=== PATIENT | female | born 1985 | race Caucasian/White ===

== ENCOUNTER 2021-07-11 07:15 | Outpatient (CLI) | payer BC, SELFPAY ==
--- NOTE | ~2021-07-11 | XR_ITS ---
EXAMINATION: XR barium swallow DATE: 07/11/2021 07:45 INDICATION: Dysphagia, unspecified. TECHNIQUE: The patient drank thick barium, gas-producing crystals, and thin barium. Fluoroscopy of th e hypopharynx and esophagus was performed. Fluoroscopy exposure time was 0.3 minutes. The total numbe r of images was 439. The dose-area product was 1.58 Gy-cm^2. COMPARISON: None. FINDINGS: There is no mass or stricture of the esophagus. Esophageal motility is normal. There is no hiatal hernia. There was no gastroesophageal reflux with provocative maneuvers. IMPRESSION: 1. Normal esophagram. Reviewed, dictated and finalized at location A. CONDITIONING TECHNICIAN IMPRESSION: 1. Normal esophagram.
== END 2021-07-11 07:16 | disposition home or self-care (01) ==
LOC: ANHIMG 07:18
PROVIDERS: PCP Family Medicine; Visit Provider Family Medicine
DX: R13.10 Dysphagia, unspecified (principal)
CPT/HCPCS: 74220

== ENCOUNTER 2021-09-15 07:33 | Outpatient (CLI) | payer BC, SELFPAY ==
--- NOTE | 2021-09-18 13:55 | WPDHOMESLEEP ---
Sleep Study - Home Unattended Date of Study: 09/15/21 Ordering Provider: Jacqui Jones DO Interpreting Provider: Jacqui Jones DO Home Sleep Study Type: Apnea Link Air Height: 1.68 m Weight: 111.13 kg Body Mass Index: 39.5 Neck Circumference (inches): 17.5 [place]: 7 Reason for Sleep Study Sleep-onset and sleep-maintenance insomnia Sleep History The patient is a 35-year-old female with depression, GERD, anxiety and seasonal allergies that had a sleep study ordered by her primary care for evaluation of sleep disturbances. The patient occasionally awakens from sleep short of breath. She frequently awakens at night with heartburn, belching or cough. She frequently snores and is occasionally loud enough that others complain. She frequently has trouble sleeping when she has a cold. She rarely wakes up gasping for air throughout the night. She occasionally has breathing problems at night observed by herself or others. She frequently sweats excessively at night. He rarely notices heart palpitations or irregular heartbeats during the night. She occasionally falls asleep during the day but never while driving. She occasionally has trouble at school or work due to sleepiness. She denies sleep paralysis and cataplexy. She rarely experiences vivid dreamlike scenes upon awakening or falling asleep. She rarely has nightmares. She occasionally has thoughts racing through her mind. She rarely feels sad or depressed. She occasionally has anxiety. She occasionally notices parts of her body jerk. She occasionally has muscular tension. She rarely kicks during the night. She frequently has crawling and aching feelings in her legs and frequently has leg pain during the night. She rarely grinds her teeth during sleep and never awakens with morning jaw pain. She is occasionally bothered by pain during the day and frequently awakened by pain during the night. She occasionally wakes up feeling stiff in the morning. She occasionally wakes up with sore achy muscles. She occasionally wakes up with pain in the neck, spine and other joints. She goes to bed at 8:30 p.m. on weekdays and 10:00 p.m. on the weekends. It takes her 30-60 minutes to fall asleep at night. She wakes up 5-6 times throughout the night. When she awakens, she will watch TV, play games on her phone and read. She can fall back asleep within 20-45 minutes. He wakes up at 4:30 a.m. on weekdays and 8:30 a.m. on the weekends. She typically gets 3-5 hours of sleep per night. She will stay in bed for 15 minutes waking up in the morning. She currently lives with her mother, brother and 15-year-old child he does not consume any caffeinated beverages within 2 hours of bedtime. She does not engage physical exercise before bedtime. She will read watch television before falling asleep. She does not take naps in the afternoon or the evening. She will drink 1 can of caffeinated beverage per day. She denies tobacco, alcohol recreational drug use. [facility] Past Medical History Medical History Allergies Anxiety Major depressive disorder Family History Family History Mother Diabetes mellitus Sibling Asthma Depression Grandparent Diabetes mellitus Heart disease Hypertension Bone cancer Social History Social History Smoking status: Never smoker Alcohol intake: never Medications Home Medications Medication Instructions Recorded Confirmed Type cetirizine 10 mg disintegrating 10 mg PO DAILY 07/05/21 08/23/21 History tablet fluoxetine 40 mg capsule 40 mg PO DAILY 90 Days #90 cap 07/05/21 08/23/21 Rx albuterol sulfate 90 mcg/actuation 1 puff INHALATION Q4H PRN 08/23/21 08/23/21 History aerosol inhaler famotidine 20 mg tablet 20 mg PO BID PRN #60 tablet 08/23/21 08/23/21 Rx mometaso
[2021-09-18 14:04] VITALS: BMI 39.5
== END 2021-09-18 10:27 | disposition home or self-care (01) ==
LOC: ANHCSM 07:34
PROVIDERS: PCP Internal Medicine; Visit Provider Family Medicine
DX: G47.10 Hypersomnia, unspecified (principal); G47.9 Sleep disorder, unspecified
CPT/HCPCS: 95806

== ENCOUNTER 2021-09-21 14:33 | Outpatient (CLI) | payer BC, SELFPAY ==
--- NOTE | 2021-09-24 20:09 | P.PCNPFT_ITS ---
PFT Procedure Performed PFT Procedure Performed Spirometry with Pre/Post Bronchodilator Plethysmography (Lung Vol) Diffusing Cap (DLCO) Flow Vol Loop PFT Interpretation DOS: 09/21/2021 REQUESTING: Dr. Jacqui Jones REASON FOR TESTING: Dyspnea PULMONARY FUNCTION TESTS Results are reliable and reproducible. Spirometry: The pre bronchodilator FEV1 is 84% predicted, 2.82 L, normal. The pre bronchodilator FVC is 98%, 3.99 L, normal. The FEV1/FVC ratio is 71%, below predicted. This is consistent with airflow obstruction. After bronchodilator there is a 5% increase in the FEV1 and a 1% increase in the FVC. This is a non- statistically significant response. Lung volumes: The total lung capacity is 110%, 5.93 L, normal. The FRC is 98%, 2.91 L, normal. The ERV is 54%, 0.7 L, decreased. The residual volume is 124%, 1.94 L, normal. FEV1/FVC is 33 %, normal. Airway resistance is incre ased. Diffusion: DLCO is 103%, normal. Flow volume loop: Unremarkable. IMPRESSION: There is a mild obstructive ventilatory impairment with normal lung volumes and normal diffusion. Lack of response to bronchodilator should not preclude use if clinically indicated. Flor Parish MD
== END 2021-09-21 14:34 | disposition home or self-care (01) ==
LOC: ANHPFT 14:35
PROVIDERS: PCP Internal Medicine; Visit Provider Family Medicine
DX: R06.00 Dyspnea, unspecified (principal); R94.2 Abnormal results of pulmonary function studies
CPT/HCPCS: 94375; 94726; 94729

== ENCOUNTER 2021-10-06 07:12 | Outpatient (CLI) | payer BC, SELFPAY ==
--- NOTE | 2021-10-10 13:52 | WPDSLEEPSTUD ---
Sleep Study Date of Study: 10/06/21 Ordering Provider: Jacqui Jones DO Interpreting Physician: Jacqui Jones DO Sleep Study Type: Polysomnogram Height: 1.68 m Weight: 111.13 kg Body Mass Index: 39.5 Neck Circumference (inches): 17.5 [place]: 7 Reason for Sleep Study Loud snoring, nighttime awakening Sleep History The patient is a 35-year-old female with depression, GERD, anxiety and seasonal allergies that had a sleep study ordered by her primary care for evaluation of sleep disturbances. The patient occasionally awakens from sleep short of breath. She frequently awakens at night with heartburn, belching or cough. She frequently snores and is occasionally loud enough that others complain. She frequently has trouble sleeping when she has a cold. She rarely wakes up gasping for air throughout the night. She occasionally has breathing problems at night observed by herself or others. She frequently sweats excessively at night. He rarely notices heart palpitations or irregular heartbeats during the night. She occasionally falls asleep during the day but never while driving. She occasionally has trouble at school or work due to sleepiness. She denies sleep paralysis and cataplexy. She rarely experiences vivid dreamlike scenes upon awakening or falling asleep. She rarely has nightmares. She occasionally has thoughts racing through her mind. She rarely feels sad or depressed. She occasionally has anxiety. She occasionally notices parts of her body jerk. She occasionally has muscular tension. She rarely kicks during the night. She frequently has crawling and aching feelings in her legs and frequently has leg pain during the night. She rarely grinds her teeth during sleep and never awakens with morning jaw pain. She is occasionally bothered by pain during the day and frequently awakened by pain during the night. She occasionally wakes up feeling stiff in the morning. She occasionally wakes up with sore achy muscles. She occasionally wakes up with pain in the neck, spine and other joints. She goes to bed at 8:30 p.m. on weekdays and 10:00 p.m. on the weekends. It takes her 30-60 minutes to fall asleep at night. She wakes up 5-6 times throughout the night. When she awakens, she will watch TV, play games on her phone and read. She can fall back asleep within 20-45 minutes. He wakes up at 4:30 a.m. on weekdays and 8:30 a.m. on the weekends. She typically gets 3-5 hours of sleep per night. She will stay in bed for 15 minutes waking up in the morning. She currently lives with her mother, brother and 15-year-old child he does not consume any caffeinated beverages within 2 hours of bedtime. She does not engage physical exercise before bedtime. She will read watch television before falling asleep. She does not take naps in the afternoon or the evening. She will drink 1 can of caffeinated beverage per day. She denies tobacco, alcohol recreational drug use. [facility] Past Medical History Medical History Allergies Anxiety Major depressive disorder Family History Family History Mother Diabetes mellitus Sibling Asthma Depression Grandparent Diabetes mellitus Heart disease Hypertension Bone cancer Social History Social History Smoking status: Never smoker Alcohol intake: never Medications Home Medications Medication Instructions Recorded Confirmed Type cetirizine 10 mg disintegrating 10 mg PO DAILY 07/05/21 08/23/21 History tablet albuterol sulfate 90 mcg/actuation 1 puff INHALATION Q4H PRN 08/23/21 08/23/21 History aerosol inhaler famotidine 20 mg tablet 20 mg PO BID PRN #60 tablet 08/23/21 08/23/21 Rx tiotropium 2.5 mcg-olodaterol 2.5 2 puff INHALATION DAILY 30 Days #4 09/25/21 Rx mcg/actuation mist for inhalation g
[2021-10-10 17:13] VITALS: BMI 39.5
== END 2021-10-07 07:07 | disposition home or self-care (01) ==
LOC: ANHCSM 07:45
PROVIDERS: PCP Internal Medicine; Visit Provider Family Medicine
DX: G47.9 Sleep disorder, unspecified (principal)
CPT/HCPCS: 95810

== ENCOUNTER 2021-10-13 14:49 | Outpatient (CLI) | payer BC, SELFPAY | END 2021-10-13 14:50 | disposition home or self-care (01) | LOC: ANHLAB 14:51 | PROVIDERS: PCP Internal Medicine; Visit Provider Family Medicine | DX: G25.81 Restless legs syndrome (principal) | CPT/HCPCS: 36415; 82728 ==

== ENCOUNTER 2021-11-01 09:04 | Outpatient (CLI) | payer BC, SELFPAY ==
--- NOTE | ~2021-11-01 | XR_ITS ---
XR chest 2V DATE: 11/01/2021 09:16 INDICATION: Cough, dyspnea TECHNIQUE: PA and lateral views COMPARISON: None FINDINGS: Normal heart size. No hilar or mediastinal enlargement. No pulmonary infiltrate or consolid ation, pleural effusion or pulmonary vascular congestion or pneumothorax. Included skeletal structures are normal. Pubic sutures overlie the lower left cervical area. IMPRESSION: No active cardiopulmonary disease Reviewed, dictated and finalized at location A.
== END 2021-11-01 09:05 | disposition home or self-care (01) ==
LOC: ANHIMG 09:05
PROVIDERS: PCP Internal Medicine; Visit Provider Family Medicine
DX: R05.9 Cough, unspecified (principal)
CPT/HCPCS: 71046

== ENCOUNTER 2021-11-09 08:15 | Outpatient (CLI) | payer BC, SELFPAY ==
[2021-11-09 08:57] LABS: Basophils Percent Auto 0.4 % (0.2-1.2); Eosinophils Absolute Auto 0.2 K/mm3 (0-0.3); Eosinophils Percent Auto 2.9 % (0-4.4); Hematocrit 41.2 % (37.0-47.0); Hemoglobin 12.7 g/dL (12.0-15.0); Immature Granulocyte Absolute 0.02 K/mm3 (0.00-0.031); Immature Granulocyte Percent A 0.2 % (0-0.5); Lymphocytes Absolute Auto 1.58 K/mm3 (0.9-3.2); Lymphocytes Percent Auto 19.1 % (18.3-44.2); Mean Corpuscular HGB Conc 30.8 g/dl (32-36); Mean Corpuscular Volume 97.4 fl (80-100); Mean Platelet Volume 8.9 fl (7.4-10.4); Monocytes Absolute Auto 0.5 K/mm3 (0.1-0.6); Monocytes Percent Auto 6.3 % (2.6-8.5); Neutrophils Absolute Auto 5.9 K/mm3 (1.3-6.7); Neutrophils Percent Auto 71.1 % (45.5-73.1); Platelet Count Result 279 k/mm3 (150-375); Red Blood Count 4.23 M/mm3 (4.2-5.4); Red Cell Distribution Width 13.1 % (11.5-14.5); White Blood Count 8.3 K/mm3 (4.5-10.0)
[2021-11-09 09:27] LABS: LDL Cholesterol Direct 162 mg/dL
[2021-11-09 09:52] LABS: Vitamin D 25 Hydroxy 33.5 ng/mL
[2021-11-09 10:00] LABS: Hemoglobin A1C 5.5 % (<5.7)
[2021-11-09 14:00] LABS: Alanine Aminotransferase 20 U/L (6-35); Albumin Level 3.9 g/dL (3.5-5.1); Alkaline Phosphatase 59 U/L (38-126); Anion Gap 8 mmol/L (8-16); Aspartate Amino Transferase 38 U/L (14-36); Bilirubin,Total 0.8 mg/dL (0.2-1.3); Blood Urea Nitrogen 12 mg/dL (7-17); Calcium 8.1 mg/dL (8.4-10.2); Carbon Dioxide 20 mmol/L (22-30); Chloride 108 mmol/L (98-107); Cholesterol 246 mg/dL (0-200); Estimated Glomerular Filt Rate > 60; Glucose 111 mg/dL (65-110); HDL Direct 25 mg/dL; Potassium 4.8 mmol/L (3.4-5.0); Sodium 136 mmol/L (137-145); Triglycerides 154 mg/dL (<150)
== END 2021-11-09 08:16 | disposition home or self-care (01) ==
LOC: ANHLAB 08:17
PROVIDERS: PCP Internal Medicine; Visit Provider Family Medicine
DX: E55.9 Vitamin D deficiency, unspecified (principal); R06.00 Dyspnea, unspecified; R73.9 Hyperglycemia, unspecified; R53.83 Other fatigue; Z13.220 Encounter for screening for lipoid disorders
CPT/HCPCS: 36415; 80053; 80061; 82306; 83036; 84439; 84443; 85025

== ENCOUNTER 2022-10-03 10:44 | Outpatient (CLI) | payer BC, SELFPAY ==
[2022-10-03 19:47] LABS: Basophils Percent Auto 0.3 % (0.2-1.2); Eosinophils Absolute Auto 0.1 K/mm3 (0-0.3); Eosinophils Percent Auto 1.4 % (0-4.4); Hematocrit 40.1 % (37.0-47.0); Hemoglobin 13.3 g/dL (12.0-15.0); Immature Granulocyte Absolute 0.04 K/mm3 (0.00-0.031); Immature Granulocyte Percent A 0.4 % (0-0.5); Lymphocytes Absolute Auto 1.86 K/mm3 (0.9-3.2); Lymphocytes Percent Auto 18.3 % (18.3-44.2); Mean Corpuscular HGB Conc 33.2 g/dl (32-36); Mean Corpuscular Hemoglobin 29.2 pg (26-34); Mean Corpuscular Volume 88.1 fl (80-100); Mean Platelet Volume 10.9 fl (7.4-10.4); Monocytes Absolute Auto 0.5 K/mm3 (0.1-0.6); Monocytes Percent Auto 4.4 % (2.6-8.5); Neutrophils Absolute Auto 7.7 K/mm3 (1.3-6.7); Neutrophils Percent Auto 75.2 % (45.5-73.1); Platelet Count Result 321 k/mm3 (150-375); Red Blood Count 4.55 M/mm3 (4.2-5.4); Red Cell Distribution Width 12.6 % (11.5-14.5); White Blood Count 10.2 K/mm3 (4.5-10.0)
[2022-10-03 21:25] LABS: Free T4 Free Thyroxine 0.67 ng/mL (0.78-2.19); Vitamin D 25 Hydroxy 44.9 ng/mL
[2022-10-03 21:30] LABS: Alanine Aminotransferase 26 U/L (6-35); Albumin Level 4.1 g/dL (3.5-5.1); Alkaline Phosphatase 76 U/L (38-126); Anion Gap 6 mmol/L (8-16); Aspartate Amino Transferase 36 U/L (14-36); Bilirubin,Total 0.5 mg/dL (0.2-1.3); Blood Urea Nitrogen 12 mg/dL (7-17); Calcium 8.9 mg/dL (8.4-10.2); Carbon Dioxide 29 mmol/L (22-30); Chloride 102 mmol/L (98-107); Cholesterol 213 mg/dL (0-200); Estimated Glomerular Filt Rate > 60; Glucose 114 mg/dL (65-110); HDL Direct 34 mg/dL; Potassium 3.8 mmol/L (3.4-5.0); Sodium 137 mmol/L (137-145); Triglycerides 166 mg/dL (<150)
[2022-10-03 21:41] LABS: LDL Cholesterol Direct 141 mg/dL
[2022-10-03 22:07] LABS: Hemoglobin A1C 5.4 % (<5.7)
== END 2022-10-03 10:45 | disposition home or self-care (01) ==
LOC: ANHGOSHLAB 10:46
PROVIDERS: PCP Family Medicine; Visit Provider Family Medicine
DX: R53.83 Other fatigue (principal); E55.9 Vitamin D deficiency, unspecified; E78.2 Mixed hyperlipidemia; R73.9 Hyperglycemia, unspecified
CPT/HCPCS: 36415; 80053; 80061; 82306; 83036; 84439; 84443; 85025

== ENCOUNTER 2023-02-14 09:34 | Outpatient (CLI) | payer BC, SELFPAY ==
[2023-02-14 13:57] LABS: Basophils Percent Auto 0.3 % (0.2-1.2); Eosinophils Absolute Auto 0.2 K/mm3 (0-0.3); Eosinophils Percent Auto 1.6 % (0-4.4); Hematocrit 40.8 % (37.0-47.0); Hemoglobin 13.4 g/dL (12.0-15.0); Immature Granulocyte Absolute 0.03 K/mm3 (0.00-0.031); Immature Granulocyte Percent A 0.2 % (0-0.5); Lymphocytes Absolute Auto 2.27 K/mm3 (0.9-3.2); Lymphocytes Percent Auto 18.5 % (18.3-44.2); Mean Corpuscular HGB Conc 32.8 g/dl (32-36); Mean Corpuscular Hemoglobin 29.4 pg (26-34); Mean Corpuscular Volume 89.5 fl (80-100); Monocytes Absolute Auto 0.6 K/mm3 (0.1-0.6); Monocytes Percent Auto 4.8 % (2.6-8.5); Neutrophils Absolute Auto 9.1 K/mm3 (1.3-6.7); Neutrophils Percent Auto 74.6 % (45.5-73.1); Platelet Count Result 342 k/mm3 (150-375); Red Blood Count 4.56 M/mm3 (4.2-5.4); Red Cell Distribution Width 12.4 % (11.5-14.5); White Blood Count 12.3 K/mm3 (4.5-10.0)
== END 2023-02-14 09:35 | disposition home or self-care (01) ==
LOC: ANHGOSHLAB 09:36
PROVIDERS: PCP Family Medicine; Visit Provider Family Medicine
DX: R53.83 Other fatigue (principal)
CPT/HCPCS: 36415; 85025

== ENCOUNTER 2023-10-30 11:49 | Outpatient (CLI) | payer BC, SELFPAY ==
[2023-10-30 12:41] LABS: Basophils Percent Auto 0.3 % (0.2-1.2); Eosinophils Absolute Auto 0.1 K/mm3 (0-0.3); Eosinophils Percent Auto 0.8 % (0-4.4); Hematocrit 41.1 % (37.0-47.0); Hemoglobin 13.7 g/dL (12.0-15.0); Immature Granulocyte Absolute 0.06 K/mm3 (0.00-0.031); Immature Granulocyte Percent A 0.4 % (0-0.5); Lymphocytes Absolute Auto 2.59 K/mm3 (0.9-3.2); Lymphocytes Percent Auto 17.7 % (18.3-44.2); Mean Corpuscular HGB Conc 33.3 g/dl (32-36); Mean Corpuscular Hemoglobin 29.7 pg (26-34); Mean Corpuscular Volume 89.2 fl (80-100); Mean Platelet Volume 9.5 fl (7.4-10.4); Monocytes Absolute Auto 0.7 K/mm3 (0.1-0.6); Monocytes Percent Auto 4.8 % (2.6-8.5); Neutrophils Absolute Auto 11.2 K/mm3 (1.3-6.7); Platelet Count Result 339 k/mm3 (150-375); Red Blood Count 4.61 M/mm3 (4.2-5.4); White Blood Count 14.7 K/mm3 (4.5-10.0)
[2023-10-30 14:37] LABS: Hemoglobin A1C 5.8 % (<5.7)
[2023-10-30 19:57] LABS: Alanine Aminotransferase 17 U/L (6-35); Albumin Level 4.2 g/dL (3.5-5.1); Alkaline Phosphatase 75 U/L (38-126); Anion Gap 6 mmol/L (4-12); Aspartate Amino Transferase 29 U/L (14-36); Bilirubin,Total 0.5 mg/dL (0.2-1.3); Blood Urea Nitrogen 10 mg/dL (7-17); Calcium 9.3 mg/dL (8.4-10.2); Carbon Dioxide 25 mmol/L (22-30); Chloride 107 mmol/L (98-107); Cholesterol 236 mg/dL (0-200); Estimated Glomerular Filt Rate > 60; Glucose 81 mg/dL (65-110); HDL Direct 35 mg/dL; Potassium 4.3 mmol/L (3.4-5.0); Sodium 138 mmol/L (137-145); Triglycerides 175 mg/dL (<150)
[2023-10-30 20:08] LABS: LDL Cholesterol Direct 158 mg/dL
[2023-10-30 20:28] LABS: Free T4 Free Thyroxine 0.75 ng/mL (0.78-2.19); Vitamin D 25 Hydroxy 31.1 ng/mL
== END 2023-10-30 11:50 | disposition home or self-care (01) ==
LOC: ANHGOSHLAB 11:51
PROVIDERS: PCP Family Medicine; Visit Provider Family Medicine
DX: R53.83 Other fatigue (principal); R73.9 Hyperglycemia, unspecified; E78.5 Hyperlipidemia, unspecified; D64.9 Anemia, unspecified; E55.9 Vitamin D deficiency, unspecified; Z12.4 Encounter for screening for malignant neoplasm of cervix
CPT/HCPCS: 36415; 80053; 80061; 82306; 83036; 84439; 84443; 85025

== ENCOUNTER 2024-03-17 08:28 | Outpatient (CLI) | payer BC, SELFPAY ==
--- NOTE | ~2024-03-17 | XR_ITS ---
CHEST RADIOGRAPH, PA AND LATERAL CLINICAL HISTORY: URI cough sob CP for 2 weeks, hx of copd . COMPARISON: 11/01/2021 TECHNIQUE: PA and lateral views of the chest. FINDINGS The cardiomediastinal silhouette is unremarkable. The lungs are clear. Visualized osseous structures and soft tissues are unremarkable. IMPRESSION: No focal infiltrate or effusion. Reviewed, dictated and finalized at location A.
== END 2024-03-17 08:29 | disposition home or self-care (01) ==
LOC: GOSHIMG 08:30
PROVIDERS: PCP Family Medicine; Visit Provider Family Medicine
DX: R06.02 Shortness of breath (principal); R07.9 Chest pain, unspecified; R05.9 Cough, unspecified
CPT/HCPCS: 71046

== ENCOUNTER 2024-12-04 08:09 | Outpatient (CLI) | payer OTHER, SELFPAY ==
--- OUTSIDE RECORDS SUMMARY | 2024-12-04 08:12 | XMS_ITS | Encounter Summary ---
Author Organization [facility] Address [address] [place] [address] Phone Care Team Providers Care Wet Room Supervisor Name Role Phone Haja Baeza MD Primary Care Provider [phone] Reason for Visit * Reason Comments Medication Refill Encounter Details Date Type Department Care Team (Late st Contact Info) Description 06/27/2021 Refill [facility] - Family Medicine [facility] [address] [place] [address] Haja Baeza MD [address] [place] [address] Medication Refill Social History Tobacco Use Types Packs/Day Years Used Date Smoking Tobacco: Never Smokeless Tobacco: Never Alcohol Use Standard Drinks/Week Comments Yes 0 (1 standard drink = 0.6 oz pur e alcohol) occasional PHQ-2 Answer Date Recorded Total Score - Questions 1-9 13 12/25 Comments No Sex and Gender Information Value Date Recorded Sex Assigned at Not on file Legal Sex Female 9:07 PM CDT Gender Identity Not on file Sexual Orientation Not on file documented as of this encounter Miscellaneous Notes * Telephone Encounter - Aura Wharton RN - 06/27/2021 3:49 PM CST Medication failed the protocol, provider to review and approve the medication order if appropriate. Requested Prescriptions Pending Prescriptions Disp Refills FLUoxetine (PROzac) 20 MG Capsule [Pharmacy Med Name: FLUOXETINE HCL 20 MG CAPSULE] 90 Capsule 0 Sig: TAKE 1 CAPSULE BY MOUTH EVERY DAY (PATIENT NEEDS FOLLOW UP) SSRI (6 Month Refill Only) Protocol Failed - 06/27/2021 8:37 AM Failed - Patient has established therapy with SSRI for at least 6 months Passed - No test in the past 12 months or most recent test was negative Passed - No active on record Passed - Visit with relevant provider in past 6 months or upcoming 90 days Recent Visits Date Type Provider Dept 01/06/21 Office Visit Haja Baeza MD [facility] Showing recent visits within past 182 days and meeting all other requirements Future Appointments No visits were found meeting these conditions. Showing future appointments within next 90 days and meeting all other requirements Passed - Has an encounter in the past 6 months with a depression, anxiety, adjustment disorder, OCD, or PTSD visit diagnosis ER PLANT OPERATOR documented in this encounter Plan of Treatment Not on file documented as of this encounter Visit Diagnoses Not on filedocumented in this encounter Additional Health Concerns Assessment Noted Time PHQ-9 Depression Total Score: 021 8:00 AM CDT documented as of this encounter Care Teams Wet Room Supervisor Relationship Specialty Start Date End Date Haja Baeza MD PCP - General Family Medicine 12/23/20 07/09/24 documented as of this encounter
--- OUTSIDE RECORDS SUMMARY | 2024-12-04 08:12 | XMS_ITS | Clinical Summary ---
Author Organization [facility] Address [address] [place] [address] Phone Care Team Providers Care Key Cutter Name Role Phone Unavailable Primary Care Provider Unavailabl e Allergies No known active allergies Medications fluoxetine HCl (FLUOXETINE ORAL) Take by mouth. Activ e azithromycin (ZITHROMAX) 1 gram Packet Take 1 Gram by mouth one time only. Active inhalational spacing device (Aerochamber MV) Spacer Use with inhaler 1 Each 4 2:26 PM CDT 10/30/19 24 Active gabapentin (NEURONTIN) 100 mg capsule Take 1 Capsule (100 mg) by mouth 2 times daily. 60 Capsule 4 11:53 AM CDT 11/29/19 24 Active amoxicillin-cl avulanate (AUGMENTIN) 875-125 mg tablet Take 1 Tablet by mouth 2 times daily. 20 Tablet 4 10:09 AM CDT 03/17/20 24 Active albuterol sulfate HFA 90 mcg/actuation aerosol inhaler INHALE 1 PUFF INHALED EVERY 4 HOURS NEEDED FOR SHORTNESS OF BREATH OR WHEEZING 18 Gram 4 10:02 AM DIE TURNER 04/07/20 24 Active methocarbamoL (ROBAXIN) 750 mg tablet Take 1 Tablet (750 mg) by mouth nightly as needed for upper back pain. 30 Tablet 5 3:04 PM DIE TURNER 07/01/19 25 Active tiotropium-olo dateroL (Stiolto Respimat) 2.5-2.5 mcg/actuation metered inhaler Take 2 Puffs by inhalation daily. 4 Gram 5 5 10:41 AM CDT 07/22/19 25 Active triamcinolone acetonide (KENALOG) 0.1 % Cream APPLY TO AFFECTED AREA(S) 2 TIMES A DAY 454 Gram 5 9:38 AM DIE TURNER 07/22/19 25 Active triamcinolone acetonide (KENALOG) 0.1 % Cream APPLY TO AFFECTED AREA(S) 2 TIMES A DAY 454 Gram 5 10:03 AM CDT 10/27/19 25 Active hydrOXYzine HCL (ATARAX) 25 mg tablet Take 1 Tablet (25 mg) by mouth 4 times daily as needed for itching 120 Tablet 12/04/19 25 Active etonogestrel-E thinyl Estradiol 0.12-0.015 mg/24 hr Ring Insert 1 vaginally ring vaginally. Leave in for 3 weeks and remove for 1 week and repeat cycle 3 Each 3 12/04/19 25 Active etonogestrel-E thinyl Estradiol (EluRyng) 0.12-0.015 mg/24 hr Ring Insert 1 vaginally ring vaginally. Leave in for 3 weeks and remove for 1 week and repeat cycle 3 Each 3 5 11:24 AM CDT 08/18/19 25 025 Discontinued Active Problems Problem Noted Date Diagnosed Date Myopia of both eyes 09/06/2023 Astigmatism of both eyes 09/06/2023 Encounters Date Type Department Care Team Description 11/17/2024 External Device Data ST[facility] ABSTRACTION Provider, Abstract 11/10/2024 External Device Data [facility] ABSTRACTION Provider, Abstract 10/15/2024 External Device Data [facility] ABSTRACTION Provider, Abstract 10/14/2024 External Device Data [facility] ABSTRACTION Provider, Abstract 10/13/2024 External Device Data [facility] ABSTRACTION Provider, Abstract 09/08/2024 External Device Data [facility] ABSTRACTION Provider, Abstract from Last 3 Months Immunizations Immunization Administration Dates Next Due Influenza Seasonal Unspecifi ed Formulation IM 03/20/2024,03/19/2023,03/03/2022,2020 Social History Tobacco Use Types Packs/Day Years Used Date Smoking Tobacco: Never Assessed Feeling Safe Answer Date Recorded Are you in a relationship wi th someone who hurts you emotionally and/or physically? No 07/13/2024 Comments Unknown Sex and Gender Information Value Date Recorded Sex Assigned at Not on file Legal Sex Female 6:30 PM DIE TURNER Gender Identity Not on file Sexual Orientation Not on file Plan of Treatment Health Maintenance Due Date Last Done Comments DTAP/TDAP/TD VACCINES (6 - Tdap) 1997 12/26/1991, 08/13/1989, 04/01/1987, Additional history exists HPV/Cotest (21-29) 09/29/2007 CERVICAL CANCER SCREENING 2016 HPV/Cotest (30-65) 2016 PAP SMEAR 2016 COVID-19 Vaccine ( season) 2024 10/08/2020, 06/20/2020 INFLUENZA VACCINE (#1) 2024 , 03/19/2023, 03/03/2022, Additional history exists HEPATITIS B VACCINES Completed 10/02/1996, 06/19/1996, 05/01/1996 HPV VACCINES Aged Out No longer eligi ble based on patient's age to complete this topic Insurance RX [employer]OSS PLANS (INTERNAL) [facility] [employer] RX [employer] RX Member Subscriber Plan / Payer (Ef fective 2024-Present) Name:Crystal Parikh Relation to Subscriber:Not on file Name:Crystal Parikh Subscriber ID:Not on file Date of :1985 Payer ID:Not on file Type:Not on file Address: [employer] [employer] [employer] [place] [address] * Guarantor: [id number] Account Type Relation to Patient Date of Phone Billing Address Workers Comp Employer
--- OUTSIDE RECORDS SUMMARY | 2024-12-04 08:12 | XMS_ITS | Clinical Summary ---
Author Organization [facility] Address [address] [place] [address] Phone Care Team Providers Care Cigarette Making Machine Catcher Name Role Phone Unavailable Primary Care Provider Unavailabl e Allergies No known active allergies Medications Cetirizine-Pseu doephedrine (ZYRTEC-D PO) Take 1 Tablet by mouth daily. Active Cyanocobalamin (B-12 PO) Take 1,000 mcg by mouth daily. Active Biotin 1000 MCG Tablet Take 5,000 mcg by mouth 2 times daily. Active Ascorbic Acid (VITAMIN C PO) Take 125 mg by mouth daily. Active APPLE CIDER VINEGAR PO Take 1-2 Tablets by mouth 3 times daily. Active other by Other route 2 times daily. [place] Active mometasone (ELOCON) 0.1 % Cream Apply to rash daily prn 45 g 1 Active FLUoxetine (PROzac) 20 MG Capsule TAKE 1 CAPSULE BY MOUTH EVERY DAY (PATIENT NEEDS FOLLOW UP) 90 Capsule 2 Active Active Problems No known active problems Immunizations Immunization Administration Dates Next Due Covid-19, Mrna, Lnp-s, Pf, 3 0 Mcg/0.3 Ml Dose (SFOX) 10/08/2020,06/20/2020 DTP Vaccine 12/26/1991, 0,04/01/1987,1986,1986 Hepatitis B Vaccine, Pediatric/adolescent 10/02/1996,06/19/1996,05/01/1996 Hib Vaccine,unspecified Formulation 09/21/1988 Inactivated Polio Vaccine 12/26/1991,,04/01/1987,1986,1986 MMR Vaccine 12/26/1991,09/21/1988 TD VACCINE 01/12/2002 Family History Medical History Relation Name Comments No Known Problems Mother Cancer Other IN FAMILY IN GENERAL Diabetes Other IN FAMILY IN GENERAL Heart Disease Other IN FAMILY IN GENERAL Relation Name Status Comments Father Other Mother Alive Other IN FAMILY IN GENERAL Other Social History Tobacco Use Types Packs/Day Years Used Date Smoking Tobacco: Never Smokeless Tobacco: Never Tobacco Cessation:Counseling Given: Yes Alcohol Use Standard Drinks/Week Comments Yes 0 (1 standard drink = 0.6 oz pur e alcohol) occasional PHQ-2 Answer Date Recorded Total Score - Questions 1-9 13 12/25 Comments No Sex and Gender Information Value Date Recorded Sex Assigned at Not on file Legal Sex Female 9:07 PM CDT Gender Identity Not on file Sexual Orientation Not on file Last Filed Vital Signs Vital Sign Reading Time Taken Comments Blood Pressure 112/72 01/06/2021 8:19 AM CDT Pulse 83 01/06/2021 8:19 AM CDT Temperature 36.3 C (97.3 F) 01/06/2021 8:19 AM CDT Respiratory Rate 16 01/06/2021 8:19 AM CDT Oxygen Saturation 98% 01/06/2021 8:19 AM CDT Inhaled Oxygen Concentration - - Weight 112.5 kg (248 lb 1.6 oz) 01/06/2021 8:19 AM CDT Height 167.6 cm (5' 6) 01/06/2021 8:19 AM CDT Body Mass Index 40.04 01/06/2021 8:19 AM CDT Plan of Treatment Health Maintenance Due Date Last Done Comments Hepatitis C Virus (HCV) Screening 1985 Human Papillomavirus (HPV) Immunization (1 - 3-dose series) 2001 DTaP/Tdap/Td Immunization (6 - Tdap) 01/13/2002 01/12/2002, 12/26/1991, 08/13/1989, Additional history exists Pap Smear 09/29/2007 Cervical Cancer Screening (CCS) 2016 HPV/Cotest 2016 SARS-COV-2 Immunization ( season) 2024 10/08/2020, 06/20/2020 Influenza Immunization (#1) 2025 Respiratory Syncytial Virus (RSV) Immunization (Adult) (1 - 1-dose 75+ series) 2061 Hepatitis B Immunization Completed 997, 06/19/1996, 05/01/1996 Meningococcal Immunization (ACWY) Aged Out No longer eligible based on patient's age to complete this topic Pneumococcal Immunization Combined Aged Out No longer eligible based on patient's age to complete this topic Rotavirus Immunization Aged Out No lo nger eligible based on patient's age to complete this topic Insurance
--- OUTSIDE RECORDS SUMMARY | 2024-12-04 08:12 | XMS_ITS | Clinical Summary ---
Author Organization [facility] Address [address] [place] [address] Care Team Providers Care Dowel Pin Worker Name Role Phone Unavailable Primary Care Provider Unavailabl e Source Comments [facility] [place],non-owned Affiliates and Associated Physician Practices is amultiple site organization consisting of ambulatory clinics and hospital sitesin [place], [place], [place] and [place]. This disclosure is being madepursuant to the Care Everywhere program and may not contain all information available regarding this patient. Last updated 18.[facility] [place] Allergies No known active allergies Medications * Be aware that medications may not be up to date on this document. Alwaysverify current medications with the patient. fluticasone propionate (FLONASE) 50 MCG/ACT nasal spray [place] 2 Sprays into each nostril once daily 1 Bottle 03/25/2016 Active Social History Tobacco Use Types Packs/Day Years Used Date Smoking Tobacco: Never Comments Unknown Sex and Gender Information Value Date Recorded Sex Assigned at Not on file Legal Sex Female 10:12 PM CDT Gender Identity Not on file Sexual Orientation Not on file Last Filed Vital Signs Vital Sign Reading Time Taken Comments Blood Pressure 110/76 03/25/2016 1:59 PM CDT Pulse 87 03/25/2016 1:59 PM CDT Temperature 37 C (98.6 F) 03/25/2016 1:59 PM CDT Respiratory Rate - - Oxygen Saturation - - Inhaled Oxygen Concentration - - Weight 104.3 kg (230 lb) 03/25/2016 1:59 PM CDT Height 167.6 cm (5' 6) 03/25/2016 1:59 PM CDT Body Mass Index 37.12 03/25/2016 1:59 PM CDT Plan of Treatment Health Maintenance Due Date Last Done Comments HIV SCREENING 2001 HEPATITIS C SCREENING 09/23/2004 DTAP/TDAP/TD VACCINES (1 - Tdap) 2005 HEPATITIS B VACCINE (1 of 3 - 19+ 3-dose series) 2005 COVID-19 VACCINE (1 - 2023-2 5 season) 2024 DEPRESSION SCREENING 05/27/2024 INFLUENZA VACCINE (Season Ended) 2025 ZOSTER VACCINE (1 of 2) 2036 HIB VACCINE Aged Out No longer eligi ble based on patient's age to complete this topic HPV VACCINE Aged Out No longer eligi ble based on patient's age to complete this topic MENINGOCOCCAL (Group B) VACC INE SHARED DECISION-MAKING Aged Out No longer eligibl e based on patient's age to complete this topic MENINGOCOCCAL GROUPS A/C/Y/W VACCINE Aged Out No longer eligible b ased on patient's age to complete this topic PNEUMOCOCCAL VACCINE Aged Out No long er eligible based on patient's age to complete this topic Insurance [employer]
--- OUTSIDE RECORDS SUMMARY | 2024-12-04 08:12 | XMS_ITS | Encounter Summary ---
Author Organization [facility] Address [address] [facility] [place] [address] Phone Care Team Providers Care Waste Water Worker Name Role Phone Haja Baeza MD Primary Care Provider [phone] Reason for Visit * Reason Comments Medication Refill Encounter Details Date Type Department Care Team (Late st Contact Info) Description 03/29/2021 Refill [facility] - [facility] [address] [place] [address] Haja Baeza MD [address] [place] [address] Medication Refill Social History Tobacco Use Types [...] encounter Miscellaneous Notes * Telephone Encounter - Celi Gould RN - 03/29/2021 1:58 PM CDT Medication failed the protocol, provider to review and approve the medication order if appropriate. Requested Prescriptions Pending Prescriptions Disp Refills FLUoxetine (PROzac) 20 MG Capsule [Pharmacy Med Name: FLUOXETINE HCL 20 MG CAPSULE] 90 Capsule 0 Sig: TAKE 1 CAPSULE BY MOUTH EVERY DAY SSRI (6 Month Refill Only) Protocol Failed - 03/29/2021 1:30 PM Failed - Patient has established therapy with SSRI for at least 6 months Passed - No test in the past 12 months or most recent test was negative Passed - No active on record Passed - Visit with relevant provider in past 6 months or upcoming 90 days Recent Visits Date Type Provider Dept 01/06/21 Office Visit Haja Baeza MD [facility] Showing recent visits within past 182 days and meeting all other requirements Future Appointments No visits were found meeting these conditions. Showing future appointments within next 90 days and meeting all other requirements Passed - Has an encounter in the past 6 months with a depression, anxiety, adjustment disorder, OCD, or PTSD visit diagnosis documented in this encounter Plan of Treatment Not on file documented as of this encounter Visit Diagnoses Not on filedocumented in this encounter Additional Health Concerns Assessment Noted Time PHQ-9 Depression Total Score: 021 8:00 AM CDT documented as of this encounter Care Teams Waste Water Worker Relationship Specialty Start Date End Date Haja Baeza MD PCP - General Family Medicine 12/23/20 07/09/24 documented as of this encounter
--- OUTSIDE RECORDS SUMMARY | 2024-12-04 08:12 | XMS_ITS | Data Portability ---
Author Organization [facility] Address [address] [facility] [place] [address] Assessment Encounter Date Assessment Date Assessment LastModified by Organization Details LastModified Time 06/28/2020 06/28/[address] Stokes, who concurs with assessment and plan. [email or web address] Not available 06/30/2020 10:32:14 Plan of Treatment Reminders Order Date Submit Date Provider Last Modified By Organization Details Last Modified Time Details Appointments None recorded. Lab CBC w/ auto diff 2020 021 GEORGINAMIKE Gudino [facility], [address] [place], [address], 1 11:30:13 BMP, serum or plasma 2020 021 [place] [facility], [address] [facility], [address], [place], [address], 1 09:12:06 Referral gynecolog ist referral 2020 021 yuriy [place] [facility], [address] [facility] , [address], [address], [place], [address], 1 17:06:43 Procedures None recorded. Surgeries None recorded. Imaging US, axilla 2020 021 GEORGINA Gonzales (Radiology), [address] [place], [address], 1 08:34:08 Medication Orders cyclobenz aprine 10 mg tablet 2019 020 INTERFACE Not available 0 09:05:04 diclofena c potassium 50 mg tablet 2019 020 INTERFACE Not available 0 09:05:04 azithromy juana 250 mg tablet 2018 019 [email or web address] Not available 0 08:56:13 Tessalon Perles 100 mg capsule 2018 019 [email or web address] Not available 0 08:56:17 citalopra m 20 mg tablet 2018 019 INTERFACE Not available 9 11:15:17 azithromy juana 250 mg tablet 2018 019 [email or web address] Not available 0 08:56:13 Tessalon Perles 100 mg capsule 2018 019 [email or web address] Not available 0 08:56:17 Patient TargetsNo targets recorded. Patient Instructions Encounter Date Encounter Id Patient Instructions Last Modified By Organization Details Last Modified Time 06/10/2018 [id number] upper respirator y infection (cold): care instructions [email or web address] Not available 06/10/2018 08:52:01 Drink plenty of fluids, Get plenty of rest. Take Tylenol as dir. OTC ltardino Not available 06/10/2018 08:52:53 05/07/2019 [id number] upper respirator y infection (cold): care instructions ltardino Not available 05/07/2019 11:12:04 Drink plenty of fluids, Get plenty of rest. Take Tylenol as dir. OTC ltardino Not available 05/07/2019 11:35:32 07/02/2019 [id number] back care and preventing injuries: care instructions ltardino Not available 07/02/2019 09:05:02 Reason for Referral Project Asst Referral for Ma ss of axilla Referring Physician: Roseann Brown, Family Medicine, Encounter Date: 06/28/2020 Results Created Date Observation Date Name Description Value Unit Range Abnormal Flag Note LastModifiedBy Organization Detail LastModifiedTime 07/11/19 21 07/11/2020 US, cynthia a No observ ation record ed. [email or web address] Ely Gonzales (Radiology) [address] [place], [address], 07/13/2020 14:14:34 Result Notes None recorded. Problems Name Problem SNOMED Code Status Onset Date Resolution Date Notes Provider Name and Address Organization Details Recorded Time Mixed anxiety and depressive disorder 162461833 Active 2019 Lorenzo Baptiste null, [place] [facility] 0 09:04:01 Low back pain 869042462 Active 2019 [place] [facility] 0 09:04:54 Otitis media 48481868 Active Roseann Med[place] RN [place] [facility] 6 11:07:26 Pain in right arm 735570207 Active Roseann [place] [facility] 6 11:07:26 Acute pharyngitis 764765559 Active Roseann [place] [facility] 6 11:07:26 Upper respiratory infection 15958481 Active Roseann [place] [facility] 6 11:07:26 Contact dermatitis caused by urushiol from [facility] noemy 266501307 Active Roseann [place] [facility] 6 11:14:21 Serous otitis media 98118756 Active Roseann Medrano RN [place], [place] [facility] 6 11:07:26 Problem Notes None recorded. Medical Equipment None Reported. Allergies No known drug allergies Medications Name Sig Start Date Stop Date Status Note LastModified by Organization Details LastModified Time cyclobenzap rine 10 mg tablet TAKE 1 TABLET BY MOUTH EVERYDAY AT BEDTIME active Not Available Not Available No t Available amoxicillin 500 mg capsule active Not Available Not Available Not Available Augmentin 875 mg-125 mg tablet Take 1 tablet every 12 hours by oral route. 05/07 completed Not Available Not Available Not Available azithromyci n 250 mg tablet TAKE 2 TABLETS (500 MG) BY ORAL ROUTE ONCE DAILY FOR 1 DAY THEN 1 TABLET (250 MG) BY ORAL ROUTE ONCE DAILY FOR 4 DAYS 07/02 completed Not Available Not Available Not Available ibuprofen 800 mg tablet Take 1 tablet 3 times a day by oral route with meals for 10 days. 07/04 completed Not Available Not Available Not Available meloxicam 15 mg tablet 07/04 completed Not Available Not Available Not Available Medrol (Galindo) 4 mg tablets in a dose pack Take 1 dose pk every day by oral route as directed. 06/10 completed Not Available Not Available Not Available tramadol 50 mg tablet Take 1 tablet every 12 hours by oral route as needed. active Not Available Not Available No t Available amoxicillin 500 mg tablet Take 1 tablet every 8 hours by oral route. 2014 active Not Available Not Available Not Avai lable Depo-Medrol 80 mg/mL suspension for injection Take 1 mL every day by injection route for 1 day. 07/04 completed Not Available Not Available Not Available Tessalon Perles 100 mg capsule Take 1 capsule 3 times a day by oral route. 07/02 completed Not Available Not Available Not Available amoxicillin 875 mg tablet active Not Available Not Available Not Available citalopram 20 mg tablet Take 1 tablet every day by oral route. 2018 active Not Available Not Available Not Avai lable nystatin 100,000 unit/gram topical cream APPLY TO THE AFFECTED AREA(S) BY TOPICAL ROUTE 2 TIMES PER DAY 05/07 completed Not Available Not Available Not Available diclofenac potassium 50 mg tablet TAKE 1 TABLET BY MOUTH TWICE A DAY active Not Available Not Available No t Available Flonase Allergy Relief 50 mcg/actuati on nasal spray,suspe nsion [place] 1 spray every day by intranasa l route. 05/07 completed Not Available Not Available Not Available Training [employer] COVID-19 Vaccine (PF) 30 mcg/0.3 mL IM susp (purple) ADMINISTE R 0.3ML IN THE MUSCLE DIRECTED active Not Available Not Available No t Available Vitals Date Recorded Body height Body mass index (BMI) Body weight Heart rate Respiratory rate Body temperature Systolic And Diastolic Provider Name and Address Organization Details Last Updated DateTime 9 167.64 cm 37.9 kg/m2 863751. 21 g 76 /min 16 /min 97.3 [degF] 138/98 mm[Hg] Amy Cid MA [facility] 9 08:42:07 Date Recorded Body height Provider Name an d Address Organization Details Last Updated DateTime 06/27/2020 167.64 cm Isela Kasper MA [facility] 1 09:23:55 Date Recorded Body height Body mass index (BMI) Body weight Heart rate Respiratory rate Body temperature Systolic And Diastolic Provider Name and Address Organization Details Last Updated DateTime 1 167.64 cm 39.7 kg/m2 108670. 72 g 80 /min 16 /min 97.1 [degF] 138/88 mm[Hg] Isela Kasper MA [facility] 1 08:44:21 Date Recorded Body height Body mass index (BMI) Body weight Heart rate Respiratory rate Body temperature Systolic And Diastolic Provider Name and Address Organization Details Last Updated DateTime 0 167.64 cm 37.9 kg/m2 660899. 21 g 76 /min 18 /min 97.4 [degF] 134/88 mm[Hg] Amy Cid MA [facility] 0 08:54:59 Date Recorded Body height Body mass index (BMI) Body weight Heart rate Respiratory rate Body temperature Systolic And Diastolic Provider Name and Address Organization Details Last Updated DateTime 9 167.64 cm 37.3 kg/m2 013282. 84 g 80 /min 18 /min 98.6 [degF] 148/90 mm[Hg] Amy Cid MA [facility] 9 10:58:21 Social History Question Answer Notes LastModified by Organizat ion Details LastModified Time Tobacco Smoking Status Never Smoker Amy Cid MA null, [facility] 06/02/2014 09:01:57 Marital Status [email or web address] Informatio n not available 02/10/2015 What Was The Date Of Your Most Recent Tobacco Screening? 06/10/2018 Information n ot available 12/18/2018 Sex: Unknown Functional Status Question Answer Note LastModified by Organizat ion Details LastModified Time What is your level of alcohol consumption? Occasional [email or web address] Information not available 01/04/2015 Mental Status None recorded. Family History Relationship Description Onset Age of this Age Resolved Age Notes LastModified by Organization Details LastModified Time Mother Hypertensive disorder [email or web address] Not available 2015 09:10:25 Medical History Condition Response Coronary Artery Disease N Other N High Blood Pressure N Atrial Fibrillation N Kidney or Bladder Problems N Thyroid Problems N GI Problems N Depression N COPD N Blood Clots N Skin Problems N Anemia N Heart Attack (MT) N Anxiety Disorder N Diabetes N Muscle, Joint, or Bone Problems N Seizures/Epilepsy N Acid Reflux (GERD) N Cancer N Stroke N Asthma N Allergies N High Cholesterol N Hepatitis N Liver Disease N Headaches N Heart Failure N Osteoporosis N Gynecological HistoryNo gynecological history recorded. Obstetrics History GPAL:G 0 P 0 0 0 0 Past Encounters Encounter ID Performer Location Encounter Start Date Encounter Closed Date Diagnosis/Indication Diagnosis SNOMED-CT Code Diagnosis ICD10 Code Diagnosis Note [id number] MD Len Flores [facility] [address] [place] [address] 1 06/02/2014 08:49:34 06/02/2014 11:01:19 Serous otitis media 63164011 [id number] LOLY [facility] [address] [place] [address] 1 07/27/2014 08:25:44 07/27/2014 09:16:44 Otitis media 90895090 [id number] LOLY [facility] [address] [place] [address] 1 01/04/2015 16:35:19 01/04/2015 17:27:05 Pain in right arm 413658481 [id number] LOLY [facility] [address] [place] [address] 1 02/10/2015 13:30:52 02/11/2015 10:07:16 Acute pharyngitis 945333807 [id number] MD Len Flores [facility] [address] [place] [address] 1 04/14/2015 16:46:01 04/14/2015 17:22:58 Pain in right arm 598571856 M79.601 [id number] LOLY [facility] [address] [place] [address] 1 07/25/2015 15:54:02 07/25/2015 16:25:16 Upper respiratory infection 87817569 J06.9 [id number] Lorenzo Baptiste [facility] [address] [place] [address]883 1 10/27/2015 13:57:06 10/27/2015 16:56:01 Upper respiratory infection 27667701 J06.9 [id number] Lorenzo Baptiste [facility] [address] [place] [address]457 1 12/15/2015 08:56:17 12/15/2015 13:47:46 Contact dermatitis caused by urushiol from [facility] noemy 168774900 L25.5 [id number] Lorenzo Baptiste [place] [address] [place] [address] 1 12/28/2015 10:52:09 12/28/2015 15:47:23 Contact dermatitis caused by urushiol from [facility] noemy 261130598 L25.5 [id number] Rick Stokes MD [place] [address] [place] [address] 1 04/10/2016 11:09:21 04/11/2016 13:50:09 Pain of temporomandibular joint 81489527 M26.957 [id number] Lorenzo Baptiste [place] [address] [place] [address] 1 07/04/2017 08:30:01 07/04/2017 11:59:04 Adult health examination 608119555 Z00.00 Upper resp iratory infection 32821929 J06.9 [id number] Lorenzo Baptiste Count includes the [facility] 14 IM [address] [place] [address] 10/23/2017 10:17:30 10/23/2017 14:47:00 Contact dermatitis caused by urushiol from [facility] noemy 026671702 L25.5 [id number] Lorenzo Baptiste Count includes the [facility] 14 IM [address] [place] [address] 12/10/2017 09:41:58 12/10/2017 11:17:45 Contact dermatitis caused by urushiol from [facility] noemy 718484548 L25.5 Tinea corporis 21078481 B35.4 [id number] MD Ely Flores [address] [place] [address] 06/10/2018 08:28:05 06/10/2018 16:46:59 Upper respiratory infection 53472312 J06.9 [id number] MD Ely Flores [address] [place] [address] 05/07/2019 10:46:06 05/08/2019 10:32:31 Upper respiratory infection 00375629 J06.9 Mixed anxi ety and depressive disorder 997667173 F41.8 [id number] MD Ely Flores [address] [place] [address] 07/02/2019 08:38:52 07/03/2019 11:33:20 Mixed anxiety and depressive disorder 240153380 F41.8 Low back pain 894711111 M54.5 [id number] MD Ely Moody [address] [place] [address] 06/27/2020 08:41:33 08/02/2020 08:36:43 [id number] MD Ely Flores [address] [place] [address] 06/28/2020 08:24:43 06/29/2020 13:41:45 Mass of axilla 756709171 R22.2 -Advised swelling could be contribute d from covid vaccine, however due to length of time will order CBC and US of area.-Advi sed 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 Health Concerns Section Related Observation LastModified by Organization Detai ls LastModified Time None Recorded Concern Status LastModified by Organization Details LastModified Time None Recorded Advance Directives Directive None Recorded Payers Insurance Date Sequence Insurance Name Policy Number Policy Espinoza Covered Member ID Espinoza Member ID Guarantor Name 07/19/2015 1 [facility] - OPEN ACCESS (POS) Crystal Parikh [id number] Crystal Parikh 12/06/2020 1 [employer] - MULTIPLAN (PPO) MEDICAL PLAN Gregg Parikh [id number] Crystal Weinbergner 12/19/2015 1 [employer] - DOS PRIOR TO 20 - [facility] BENEFITS PLAN [id number] Crystal Weinbergner [id number] Crystal Weinbergner Notes Date Note Type Note Provider Name and Address Organization Details Recorded Time 06/10/2018 text/html Upper Respirator y SymptomsReported bypatient.Location:hea d Quality:productive cough;colored phlegm;congested Modifying Factors:OTC medication Associated Symptoms:yellow-green, thick sputum;fatigue Lorenzo flynn [place] [facility] 06/10/2018 08:53:01 05/07/2019 text/html Upper Respirator y SymptomsReported bypatient.Location:hea d Quality:productive cough;colored phlegm;congested Modifying Factors:OTC medication States she has started noticing anxiety and depression lately related to her work. 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 Pt reports L arm pain that started one week ago after moving heavy furniture. Patient reports pain is worse with palpation. Pt reports it is axilla. No redness to area. No drainage. ODIN [place] Emma [facility] 08/02/2020 08:36:42 06/28/2020 text/html Musculoskeletal PainReported bypatient.Location:h[place] n is not radiating Severity:same Duration:present <1 month Timing:constant Context:overuse Associated Symptoms:no fever; no weak limbs; no tingling Pt here for large knot under L arm. Reports she noticed it 1 weeks ago after moving furniture at her job. Pt does not remember specific injury. She also reports she had her covid vaccine about 2 weeks ago in the same arm. She denies any fever, night sweats, rash, N/V/D, other node swelling, breast masses or lumps. 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 Rick Stokes MD Attn: Accounting,[address] [place], [address], [facility] 06/30/2020 10:32:45 OBGyn Episode No OBEpisode recorded.
[2024-12-04 11:56] LABS: Hematocrit 41.7 % (37.0-47.0); Hemoglobin 13.5 g/dL (12.0-15.0); Immature Granulocyte Percent A 0.3 % (0-0.5); Lymphocytes Absolute Auto 1.92 K/mm3 (0.9-3.2); Mean Corpuscular HGB Conc 32.4 g/dl (32-36); Mean Corpuscular Hemoglobin 29.3 pg (26-34); Mean Corpuscular Volume 90.5 fl (80-100); Nucleated Red Blood Cells Absolute Auto 0.000 K/mm3 (0.0-0.012); Nucleated Red Blood Cells Perc 0.0 % (0.0-0.2); Platelet Count Result 363 k/mm3 (150-375); Red Blood Count 4.61 M/mm3 (4.2-5.4); White Blood Count 13.4 K/mm3 (4.5-10.0)
[2024-12-04 12:04] LABS: Alanine Aminotransferase 22 U/L (6-35); Albumin Level 3.9 g/dL (3.5-5.1); Alkaline Phosphatase 69 U/L (38-126); Anion Gap 10 mmol/L (4-12); Aspartate Amino Transferase 29 U/L (14-36); Bilirubin,Total 0.3 mg/dL (0.2-1.3); Blood Urea Nitrogen 10 mg/dL (7-17); Calcium 9.1 mg/dL (8.4-10.2); Carbon Dioxide 25 mmol/L (22-30); Chloride 105 mmol/L (98-107); Cholesterol 222 mg/dL (0-200); Estimated Glomerular Filt Rate > 60; Glucose 103 mg/dL (65-110); HDL Direct 37 mg/dL; Potassium 4.2 mmol/L (3.4-5.0); Sodium 140 mmol/L (137-145); Total Protein 7.9 g/dL (6.3-8.2); Triglycerides 100 mg/dL (<150)
[2024-12-04 12:40] LABS: Thyroid Stimulating Hormone 9.890 uIU/mL (0.465-4.680)
[2024-12-04 12:54] LABS: Free T4 Free Thyroxine 0.65 ng/dL (0.78-2.19)
[2024-12-04 13:03] LABS: Hemoglobin A1C 5.6 % (<5.7)
== END 2024-12-04 08:10 | disposition home or self-care (01) ==
LOC: ANHGOSHLAB 08:10
PROVIDERS: PCP Family Medicine; Visit Provider Family Medicine
DX: E78.2 Mixed hyperlipidemia (principal); D64.9 Anemia, unspecified; Z00.00 Encounter for general adult medical examination without abnormal findings; R53.83 Other fatigue; R73.9 Hyperglycemia, unspecified; E55.9 Vitamin D deficiency, unspecified
CPT/HCPCS: 36415; 80053; 80061; 82306; 83036; 84439; 84443; 85025

== ENCOUNTER 2024-12-14 13:11 | Outpatient (CLI) | payer OTHER, SELFPAY ==
--- OUTSIDE RECORDS SUMMARY | 2024-12-14 13:16 | XMS_ITS | Encounter Summary ---
Author Organization [facility] Address [address] [facility] [place] [address] Phone Care Team Providers Care Education And Training Coordinator Name Role Phone Haja Baeza MD Primary Care Provider [phone] Reason for Visit * Reason Comments Medication Refill Encounter Details Date Type Department Care Team (Late st Contact Info) Description 06/27/2021 Refill [facility] - Family Medicine [facility] [address] [place] [address] Haja Baeza MD [address] [place] [address] Medication Refill Social History Tobacco Use Types [...] Dept 01/06/21 Office Visit Haja Baeza MD [facility] Showing recent visits within past 182 days and meeting all other requirements Future Appointments No visits were found meeting these conditions. Showing future appointments within next 90 days and meeting all other requirements Passed - Has an encounter in the past 6 months with a depression, anxiety, adjustment disorder, OCD, or PTSD visit diagnosis ET ANALYST documented in this encounter Plan of Treatment Not on file documented as of this encounter Visit Diagnoses Not on filedocumented in this encounter Additional Health Concerns Assessment Noted Time PHQ-9 Depression Total Score: 021 8:00 AM CDT documented as of this encounter Care Teams Education And Training Coordinator Relationship Specialty Start Date End Date Haja Baeza MD PCP - General Family Medicine 12/23/20 07/09/24 documented as of this encounter
--- OUTSIDE RECORDS SUMMARY | 2024-12-14 13:16 | XMS_ITS | Encounter Summary ---
Author Organization [facility] Address [address] [facility] [place] [address] Phone Care Team Providers Care Policy Change Clerk Name Role Phone Haja Baeza MD Primary Care Provider [phone] Reason for Visit * Reason Comments Medication Refill Encounter Details Date Type Department Care Team (Late st Contact Info) Description 03/29/2021 Refill [facility] - Family Medicine [facility] [address] [place] [address] Haja Baeza MD [address] [place] [address] Medication Refill Social History Tobacco Use Types [...] Dept 01/06/21 Office Visit Haja Baeza MD [facility] Showing recent visits within past 182 days [...] documented as of this encounter Care Teams Policy Change Clerk Relationship Specialty Start Date End Date Haja Baeza MD PCP - General Family Medicine 12/23/20 07/09/24 documented as of this encounter
--- OUTSIDE RECORDS SUMMARY | 2024-12-14 13:16 | XMS_ITS | Clinical Summary ---
Author Organization [facility] Address [address] [place] [address] Phone Care Team Providers Care Pebble Mill Operator Name Role Phone Unavailable Primary Care Provider [...] OR WHEEZING 18 Gram 4 10:02 AM MORTGAGE LOAN SPECIALIST 04/07/20 24 Active methocarbamoL (ROBAXIN) 750 mg tablet Take 1 Tablet (750 mg) by mouth nightly as needed for upper back pain. 30 Tablet 5 3:04 PM MORTGAGE LOAN SPECIALIST 07/01/19 25 Active tiotropium-olo dateroL (Stiolto Respimat) 2.5-2.5 mcg/actuation metered inhaler Take 2 Puffs by inhalation daily. 4 Gram 5 5 10:41 AM CDT 07/22/19 25 Active triamcinolone acetonide (KENALOG) 0.1 % Cream APPLY TO AFFECTED AREA(S) 2 TIMES A DAY 454 Gram 5 9:38 AM MORTGAGE LOAN SPECIALIST 07/22/19 25 Active triamcinolone acetonide (KENALOG) 0.1 % Cream APPLY TO AFFECTED AREA(S) 2 TIMES A DAY 454 Gram 5 10:03 AM CDT 10/27/19 25 Active hydrOXYzine HCL (ATARAX) 25 mg tablet Take 1 Tablet (25 mg) by mouth 4 times daily as needed for itching 120 Tablet 5 9:48 AM CDT 12/04/19 25 Active etonogestrel-E thinyl Estradiol 0.12-0.015 [...] Encounters Date Type Department Care Team Description 12/09/2024 External Device Data STL ABSTRACTION Provider, Abstract 12/08/2024 External Device Data STL ABSTRACTION Provider, Abstract 11/17/2024 External Device Data STL ABSTRACTION Provider, [...] Years Used Date Smoking Tobacco: Never Assessed Comments Unknown Sex and Gender Information Value Date Recorded Sex Assigned at Not on file Legal Sex Female 6:30 PM MORTGAGE LOAN SPECIALIST Gender Identity Not on file Sexual Orientation Not on file Plan of Treatment Health Maintenance Due Date Last Done Comments DTAP/TDAP/TD VACCINES (6 - Tdap) 1997 12/26/1991, 08/13/1989, 04/01/1987, Additional history exists HPV VACCINES (1 - 3-dose series) 2001 HPV/Cotest (21-29) 09/29/2007 CERVICAL CANCER SCREENING 2016 HPV/Cotest (30-65) 2016 PAP SMEAR 2016 COVID-19 Vaccine (3 - 2023-2 5 season) 2024 10/08/2020, 06/20/2020 INFLUENZA VACCINE (#1) 2024 , 03/19/2023, 03/03/2022, Additional history exists HEPATITIS B VACCINES Completed 10/02/1996, 06/19/1996, 05/01/1996 Insurance RX FOSS PLANS (INTERNAL) [facility] [employer] RX [employer] RX Member Subscriber Plan / Payer (Ef fective 2024-Present) Name:Crystal Parikh Relation to Subscriber:Not on file Name:Crystal Parikh Subscriber ID:Not on file Date of :1985 Payer ID:Not on file Type:Not on file Address: [place] [employer]EE WORK COMP * Guarantor: [id number] Account Type Relation to Patient Date of Phone Billing Address Workers Comp Employer
--- OUTSIDE RECORDS SUMMARY | 2024-12-14 13:16 | XMS_ITS | Clinical Summary ---
Author Organization [facility] Address [address] [place] [address] Phone Care Team Providers Care Coal Digger Name Role Phone Unavailable Primary Care Provider [...] Lnp-s, Pf, 3 0 Mcg/0.3 Ml Dose ([employer]) 10/08/2020,06/20/2020 DTP Vaccine 12/26/1991, 0,04/01/1987,1986,1986 Hepatitis B [...]
--- OUTSIDE RECORDS SUMMARY | 2024-12-14 13:17 | XMS_ITS | Data Portability ---
Author Organization [facility] Address [address] [place] [address] Assessment Encounter Date Assessment Date Assessment LastModified by Organization Details LastModified Time 06/28/2020 06/28/[address] Stokes, who concurs with assessment and plan. [email or web address] Not available 06/30/2020 10:32:14 Plan of Treatment Reminders Order Date Submit Date Provider Last Modified By Organization Details Last Modified Time Details Appointments None recorded. Lab CBC w/ auto diff 2020 021 GEORGINAMIKE Gudino [facility], [address] [facility] [place], [address], 1 11:30:13 BMP, serum or plasma 2020 021 ADKINS [facility], [address] [facility], [address], [place], [address], 1 09:12:06 Referral gynecolog ist referral 2020 021 yuriy Redding APN, 4 [facility] , [address], [address], [place], [address], 1 17:06:43 Procedures None recorded. Surgeries None recorded. Imaging US, axilla 2020 021 GEORGINA Gonzales (Radiology), 1 [facility] [place], [address], 1 08:34:08 Medication Orders cyclobenz aprine 10 [...] By Organization Details Last Modified Time 06/10/2018 [id number] upper respirator y infection (cold): care instructions [email or web address] Not available 06/10/2018 08:52:01 Drink plenty of fluids, Get plenty of rest. Take Tylenol as dir. OTC ltardino Not available 06/10/2018 08:52:53 05/07/2019 [id number] upper respirator y infection (cold): care instructions ltardino Not available 05/07/2019 11:12:04 Drink plenty of fluids, Get plenty of rest. Take Tylenol as dir. OTC ltardino Not available 05/07/2019 11:35:32 07/02/2019 [id number] back care and preventing injuries: care instructions ltardino Not available 07/02/2019 09:05:02 Reason for Referral Watch Case Polisher Referral for Ma ss of axilla Referring Physician: Roseann Brown, Family Medicine, Encounter Date: 06/28/2020 Results Created Date Observation Date Name Description Value Unit Range Abnormal Flag Note LastModifiedBy Organization Detail LastModifiedTime 07/11/19 21 07/11/2020 US, cynthia a No observ ation record ed. [email or web address] Ely Gonzales (Radiology) 1 [facility] [place], [address], 07/13/2020 14:14:34 Result Notes None recorded. Problems Name Problem SNOMED Code Status Onset Date Resolution Date Notes Provider Name and Address Organization Details Recorded Time Otitis media 98895813 Active Roseann Med[place] RN null, [place] [facility] 6 11:07:26 Pain in right arm 590779051 Active Roseann Med[place] [facility] 6 11:07:26 Acute pharyngitis 304218314 Active Roseann [place] [facility] 6 11:07:26 Upper respiratory infection 16609192 Active Roseann Med[place] [facility] 6 11:07:26 Contact dermatitis caused by urushiol from [facility] noemy 263995070 Active Roseann Med[place] [facility] 6 11:14:21 Serous otitis media 26306199 Active Roseann [place] [facility] 6 11:07:26 Mixed anxiety and depressive disorder 556937970 Active 2019 Lorenzo Baptiste [place], [place] [facility] 0 09:04:01 Low back pain 820648996 Active 2019 Lorenzo Baptiste [place], [place] [facility] 0 09:04:54 Problem Notes None recorded. Medical Equipment None [...] Relief 50 mcg/actuati on nasal spray,suspe nsion [place] 1 spray every day by intranasa l route. 05/07 completed Not Available Not Available Not Available true[x] Media COVID-19 Vaccine (PF) 30 mcg/0.3 mL IM susp (purple) ADMINISTE R 0.3ML IN THE MUSCLE DIRECTED active Not Available Not Available No t Available Vitals Date Recorded Body height Body mass index (BMI) Body weight Heart rate Respiratory rate Body temperature Systolic And Diastolic Provider Name and Address Organization Details Last Updated DateTime 9 167.64 cm 37.9 kg/m2 711791. 21 g 76 /min 16 /min 97.3 [degF] 138/98 mm[Hg] Amy Cid MA [facility] 9 08:42:07 Date Recorded Body height Provider Name an d Address Organization Details Last Updated DateTime 06/27/2020 167.64 cm Isela Kasper MA [facility] 1 09:23:55 Date Recorded Body height Body mass index (BMI) Body weight Heart rate Respiratory rate Body temperature Systolic And Diastolic Provider Name and Address Organization Details Last Updated DateTime 1 167.64 cm 39.7 kg/m2 391079. 72 g 80 /min 16 /min 97.1 [degF] 138/88 mm[Hg] Isela Kasper MA [facility] 1 08:44:21 Date Recorded Body height Body mass index (BMI) Body weight Heart rate Respiratory rate Body temperature Systolic And Diastolic Provider Name and Address Organization Details Last Updated DateTime 0 167.64 cm 37.9 kg/m2 902738. 21 g 76 /min 18 /min 97.4 [degF] 134/88 mm[Hg] Amy Cid MA [facility] 0 08:54:59 Date Recorded Body height Body mass index (BMI) Body weight Heart rate Respiratory rate Body temperature Systolic And Diastolic Provider Name and Address Organization Details Last Updated DateTime 9 167.64 cm 37.3 kg/m2 063870. 84 g 80 /min 18 /min 98.6 [degF] 148/90 mm[Hg] Amy Cid MA [facility] 9 10:58:21 Social History Question Answer Notes LastModified by Organizat ion Details LastModified Time Tobacco Smoking Status Never Smoker Amy Cid MA null, [facility] 06/02/2014 09:01:57 Marital Status [email or web address] Informatio n not available 02/10/2015 What Was The Date Of Your Most Recent Tobacco Screening? 06/10/2018 Information n ot available 12/18/2018 Sex: Unknown Functional Status Question Answer Note LastModified by Organizat ion Details LastModified Time What is your level of alcohol consumption? Occasional [email or web address] Information not available 01/04/2015 Mental Status None [...] Skin Problems N Anemia N Heart Attack ([place]) N Anxiety Disorder N Diabetes N Muscle, [...] SNOMED-CT Code Diagnosis ICD10 Code Diagnosis Note [id number] MD Len Flores [facility] [address] [place] [address] 1 06/02/2014 08:49:34 06/02/2014 11:01:19 Serous otitis media 29460974 [id number] LOLY Hugo [facility] [address] [place] [address] 1 07/27/2014 08:25:44 07/27/2014 09:16:44 Otitis media 63069152 [id number] LOLY Hugo [facility] [address] [place] [address] 1 01/04/2015 16:35:19 01/04/2015 17:27:05 Pain in right arm 790408739 [id number] LOLY Hugo [facility] [address] [place] [address] 1 02/10/2015 13:30:52 02/11/2015 10:07:16 Acute pharyngitis 649176997 [id number] MD Len Flores [facility] [address] [place] [address]040 1 04/14/2015 16:46:01 04/14/2015 17:22:58 Pain in right arm 632770570 M79.601 [id number] LOLY Hugo [facility] [address] [place] [address]91[address]534 1 07/25/2015 15:54:02 07/25/2015 16:25:16 Upper respiratory infection 63339688 J06.9 [id number] Lorenzo Baptiste [facility] [address] [place] [address] 1 10/27/2015 13:57:06 10/27/2015 16:56:01 Upper respiratory infection 39785128 J06.9 [id number] Lorenzo Baptiste [facility] [address] [place] [address] 1 12/15/2015 08:56:17 12/15/2015 13:47:46 Contact dermatitis caused by urushiol from [facility] 470998787 L25.5 [id number] Lorenzo Baptiste [place] [address] [place] [address] 1 12/28/2015 10:52:09 12/28/2015 15:47:23 Contact dermatitis caused by urushiol from [facility] 595696073 L25.5 [id number] Rick Stokes MD [place] [address] [place] [address] 1 04/10/2016 11:09:21 04/11/2016 13:50:09 Pain of temporomandibular joint 63701261 M26.770 [id number] Lorenzo Baptiste [place] [address] [place] [address]947 1 07/04/2017 08:30:01 07/04/2017 11:59:04 Adult health examination 597941113 Z00.00 Upper resp iratory infection 89531761 J06.9 [id number] Lorenzo Baptiste [facility] 14 IM [address] [place] [address] 10/23/2017 10:17:30 10/23/2017 14:47:00 Contact dermatitis caused by urushiol from [facility] 787662262 L25.5 [id number] Lorenzo Baptiste [facility] 14 IM 4 [place] [address] 12/10/2017 09:41:58 12/10/2017 11:17:45 Contact dermatitis caused by urushiol from [facility] noemy 128062589 L25.5 Tinea corporis 64453299 B35.4 [id number] MD Ely Flores [address] [facility] [place] [address] 06/10/2018 08:28:05 06/10/2018 16:46:59 Upper respiratory infection 33315547 J06.9 [id number] MD Ely Flores [address] [facility] [place] [address] 05/07/2019 10:46:06 05/08/2019 10:32:31 Upper respiratory infection 22014532 J06.9 Mixed anxi ety and depressive disorder 983464350 F41.8 [id number] MD Ely Flores [address] [facility] [place] [address] 07/02/2019 08:38:52 07/03/2019 11:33:20 Mixed anxiety and depressive disorder 596820377 F41.8 Low back pain 685452447 M54.5 [id number] MD Ely Moody [address] [place] [address] 06/27/2020 08:41:33 08/02/2020 08:36:43 [id number] MD Ely Flores [address] [place] [address] 06/28/2020 08:24:43 06/29/2020 13:41:45 Mass of axilla 866379810 R22.2 -Advised swelling could be contribute d from covid vaccine, however due to length of time will order CBC and US of area.-Advi sed patient to make WOUND CARE COORDINATOR apt to establish for annual exams.-If area [...] Espinoza Member ID Guarantor Name 07/19/2015 1 [facility] - OPEN ACCESS (POS) Crystal Parikh [id number] Crystal Parikh 12/06/2020 1 [employer] - MULTIPLAN (PPO) MEDICAL PLAN Gregg Parikh [id number] Crystal Weinbergner 12/19/2015 1 [employer] - DOS PRIOR TO 20 - [facility] BENEFITS PLAN [id number] Crystal Weinbergner [id number] Crystal Weinbergner Notes Date Note Type Note Provider Name and Address Organization Details Recorded Time 06/10/2018 text/html Upper Respirator y SymptomsReported bypatient.Location:hea d Quality:productive cough;colored phlegm;congested Modifying Factors:OTC medication Associated Symptoms:yellow-green, thick sputum;fatigue Lorenzo [facility] [facility] 06/10/2018 08:53:01 05/07/2019 text/html Upper Respirator y SymptomsReported bypatient.Location:hea d Quality:productive cough;colored phlegm;congested Modifying Factors:OTC medication States she has started noticing anxiety and depression lately related to her work. 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 Pt reports L arm pain that started one week ago after moving heavy furniture. Patient reports pain is worse with palpation. Pt reports it is axilla. No redness to area. No drainage. ODIN [facility] 08/02/2020 08:36:42 06/28/2020 text/html Musculoskeletal PainReported bypatient.Location:hunter [...] She is not utd with her annual WOUND CARE COORDINATOR checks. Rick Stokes MD Attn: Accounting,[address] [place], [address], [facility] 06/30/2020 10:32:45 OBGyn Episode No OBEpisode recorded.
--- OUTSIDE RECORDS SUMMARY | 2024-12-14 13:17 | XMS_ITS | Clinical Summary ---
Author Organization [facility] Address [address] [place] [address] Care Team Providers Care Ripening Room Operator Name Role Phone Unavailable Primary Care Provider Unavailabl e Source Comments [facility],non-owned Affiliates and Associated Physician Practices is amultiple site organization consisting of ambulatory clinics and hospital sitesin [place], [place], [place] and [place]. This disclosure is being madepursuant to the Care Everywhere program and may not contain all information available regarding this patient. Last updated 18.[facility] Allergies No known active allergies Medications * Be aware that medications may not be up to date on this document. Alwaysverify current medications with the patient. fluticasone propionate (FLONASE) 50 MCG/ACT nasal spray [place] 2 Sprays into each nostril once daily [...] of 3 - 19+ 3-dose series) 2005 HPV VACCINE (1 - 3-dose SCDM series) 2013 COVID-19 VACCINE (1 - 2023-2 5 season) 2024 DEPRESSION SCREENING 05/27/2024 INFLUENZA VACCINE (#1) 2025 ZOSTER VACCINE (1 of 2) 2036 [...]
[2024-12-14 19:33] LABS: Hematocrit 43.3 % (37.0-47.0); Hemoglobin 14.1 g/dL (12.0-15.0); Immature Granulocyte Percent A 0.3 % (0-0.5); Lymphocytes Absolute Auto 2.24 K/mm3 (0.9-3.2); Mean Corpuscular HGB Conc 32.6 g/dl (32-36); Mean Corpuscular Hemoglobin 29.2 pg (26-34); Mean Corpuscular Volume 89.6 fl (80-100); Nucleated Red Blood Cells Absolute Auto 0.000 K/mm3 (0.0-0.012); Nucleated Red Blood Cells Perc 0.0 % (0.0-0.2); Platelet Count Result 368 k/mm3 (150-375); Red Blood Count 4.83 M/mm3 (4.2-5.4); White Blood Count 12.3 K/mm3 (4.5-10.0)
[2024-12-14 20:15] LABS: Thyroid Stimulating Hormone Reflex 11.900 uIU/mL (0.465-4.68)
[2024-12-15 05:44] LABS: Free T4 Free Thyroxine Reflex 0.67 ng/dL (0.78-2.19)
== END 2024-12-14 13:12 | disposition home or self-care (01) ==
LOC: ANHGOSHLAB 13:12
PROVIDERS: PCP Family Medicine; Visit Provider Family Medicine
DX: R79.89 Other specified abnormal findings of blood chemistry (principal); E78.2 Mixed hyperlipidemia; D72.829 Elevated white blood cell count, unspecified
CPT/HCPCS: 36415; 82172; 84439; 84443; 85025; 86376; 86800